=== PATIENT | male | born 1945 | race Caucasian/White ===

== ENCOUNTER 2017-12-18 09:36 | Outpatient (CLI) | payer MEDICARE, OTHER ==
[2017-12-18 10:19] LABS: INR-International Normal Ratio 2.6; Prothrombin Time 29.2 SEC (12.0-14.7)
== END 2017-12-18 09:37 | disposition home or self-care (01) ==
LOC: MADLAB 09:36
PROVIDERS: ATTEND Internal Medicine
DX: Z51.81 Encounter for therapeutic drug level monitoring (principal); I82.409 Acute embolism and thrombosis of unspecified deep veins of unspecified lower extremity; Z79.01 Long term (current) use of anticoagulants
CPT/HCPCS: 36415; 85610

== ENCOUNTER 2018-01-22 11:30 | Outpatient (CLI) | payer MEDICARE, OTHER ==
[2018-01-22 11:56] LABS: Prothrombin Time 46.7 SEC (12.0-14.7)
[2018-01-22 12:45] LABS: INR-International Normal Ratio 4.7
== END 2018-01-22 11:31 | disposition home or self-care (01) ==
LOC: MADLAB 11:30
PROVIDERS: ATTEND Internal Medicine
DX: Z51.81 Encounter for therapeutic drug level monitoring (principal); I82.409 Acute embolism and thrombosis of unspecified deep veins of unspecified lower extremity
CPT/HCPCS: 36415; 85610

== ENCOUNTER 2018-02-02 12:54 | Outpatient (CLI) | payer MEDICARE, OTHER ==
[2018-02-02 13:37] LABS: INR-International Normal Ratio 3.5; Prothrombin Time 36.8 SEC (12.0-14.7)
== END 2018-02-02 12:55 | disposition home or self-care (01) ==
LOC: MADLAB 12:54
PROVIDERS: ATTEND Internal Medicine
DX: I82.409 Acute embolism and thrombosis of unspecified deep veins of unspecified lower extremity (principal); Z79.01 Long term (current) use of anticoagulants
CPT/HCPCS: 36415; 85610

== ENCOUNTER 2018-02-16 12:45 | Outpatient (CLI) | payer MEDICARE, OTHER ==
[2018-02-16 14:01] LABS: INR-International Normal Ratio 3.2; Prothrombin Time 34.2 SEC (12.0-14.7)
== END 2018-02-16 12:46 | disposition home or self-care (01) ==
LOC: MADLAB 12:45
PROVIDERS: ATTEND Internal Medicine
DX: Z51.81 Encounter for therapeutic drug level monitoring (principal); I82.409 Acute embolism and thrombosis of unspecified deep veins of unspecified lower extremity; Z79.01 Long term (current) use of anticoagulants
CPT/HCPCS: 36415; 85610

== ENCOUNTER 2018-03-24 13:18 | Outpatient (CLI) | payer MEDICARE, OTHER ==
[2018-03-24 13:41] LABS: INR-International Normal Ratio 2.2; Prothrombin Time 25.5 SEC (12.0-14.7)
== END 2018-03-24 13:19 | disposition home or self-care (01) ==
LOC: MADLAB 13:18
PROVIDERS: ATTEND Internal Medicine
DX: Z51.81 Encounter for therapeutic drug level monitoring (principal); I82.409 Acute embolism and thrombosis of unspecified deep veins of unspecified lower extremity; Z79.01 Long term (current) use of anticoagulants
CPT/HCPCS: 36415; 85610

== ENCOUNTER 2018-04-09 13:55 | Outpatient (CLI) | payer MEDICARE, OTHER ==
[2018-04-09 14:27] LABS: INR-International Normal Ratio 2.4; Prothrombin Time 26.6 SEC (12.0-14.7)
== END 2018-04-09 13:56 | disposition home or self-care (01) ==
LOC: MADLAB 13:55
PROVIDERS: ATTEND Internal Medicine
DX: Z51.81 Encounter for therapeutic drug level monitoring (principal); Z86.718 Personal history of other venous thrombosis and embolism; Z79.01 Long term (current) use of anticoagulants
CPT/HCPCS: 36415; 85610

== ENCOUNTER 2018-04-23 15:14 | Outpatient (CLI) | payer MEDICARE, OTHER ==
[2018-04-23 15:40] LABS: INR-International Normal Ratio 2.9; Prothrombin Time 31.8 SEC (12.0-14.7)
== END 2018-04-23 15:15 | disposition home or self-care (01) ==
LOC: MADLAB 15:14
PROVIDERS: ATTEND Internal Medicine
DX: Z51.81 Encounter for therapeutic drug level monitoring (principal); I82.409 Acute embolism and thrombosis of unspecified deep veins of unspecified lower extremity; Z79.01 Long term (current) use of anticoagulants
CPT/HCPCS: 36415; 85610

== ENCOUNTER 2018-10-04 14:27 | Outpatient (CLI) | payer MEDICARE, OTHER ==
[2018-10-04 15:17] LABS: INR-International Normal Ratio 2.8; Prothrombin Time 29.7 SEC (12.0-14.7)
== END 2018-10-04 14:28 | disposition home or self-care (01) ==
LOC: MADLAB 14:27
PROVIDERS: ATTEND Family Medicine
DX: Z51.81 Encounter for therapeutic drug level monitoring (principal); I82.502 Chronic embolism and thrombosis of unspecified deep veins of left lower extremity; D68.59 Other primary thrombophilia; Z79.01 Long term (current) use of anticoagulants
CPT/HCPCS: 36415; 85610

== ENCOUNTER 2018-10-18 15:33 | Emergency (ER) | payer MEDICARE, OTHER | END 2018-10-18 16:38 | disposition home or self-care (01) | LOC: MADERS 15:33 | DX: M10.9 Gout, unspecified (principal); I10 Essential (primary) hypertension; E78.00 Pure hypercholesterolemia, unspecified; E11.9 Type 2 diabetes mellitus without complications | CPT/HCPCS: 99283 ==

== ENCOUNTER 2018-11-10 13:57 | Outpatient (CLI) | payer MEDICARE, OTHER ==
[2018-11-10 14:21] LABS: INR-International Normal Ratio 2.3; Prothrombin Time 25.3 SEC (12.0-14.7)
== END 2018-11-10 13:58 | disposition home or self-care (01) ==
LOC: MADLAB 13:57
PROVIDERS: ATTEND Internal Medicine
DX: Z51.81 Encounter for therapeutic drug level monitoring (principal); D68.59 Other primary thrombophilia; I82.502 Chronic embolism and thrombosis of unspecified deep veins of left lower extremity; Z79.01 Long term (current) use of anticoagulants
CPT/HCPCS: 36415; 85610

== ENCOUNTER 2018-11-16 11:18 | Outpatient (CLI) | payer MEDICARE, OTHER ==
[2018-11-16 11:53] LABS: INR-International Normal Ratio 2.6
== END 2018-11-16 11:19 | disposition home or self-care (01) ==
LOC: MADLAB 11:18
PROVIDERS: ATTEND Family Medicine
DX: Z51.81 Encounter for therapeutic drug level monitoring (principal); I82.502 Chronic embolism and thrombosis of unspecified deep veins of left lower extremity; I82.609 Acute embolism and thrombosis of unspecified veins of unspecified upper extremity; D68.59 Other primary thrombophilia; Z79.01 Long term (current) use of anticoagulants
CPT/HCPCS: 36415; 85610

== ENCOUNTER 2018-12-30 11:47 | Outpatient (CLI) | payer MEDICARE, OTHER ==
[2018-12-30 12:29] LABS: INR-International Normal Ratio 2.2; Prothrombin Time 24.8 SEC (12.0-14.7)
== END 2018-12-30 11:48 | disposition home or self-care (01) ==
LOC: MADLAB 11:47 → EDSTATUS 12:19
PROVIDERS: ATTEND Internal Medicine
DX: Z51.81 Encounter for therapeutic drug level monitoring (principal); Z79.01 Long term (current) use of anticoagulants; I82.502 Chronic embolism and thrombosis of unspecified deep veins of left lower extremity; D68.59 Other primary thrombophilia
CPT/HCPCS: 36415; 85610

== ENCOUNTER 2019-01-18 13:54 | Outpatient (CLI) | payer MEDICARE, OTHER ==
[2019-01-18 14:21] LABS: INR-International Normal Ratio 1.9
== END 2019-01-18 13:55 | disposition home or self-care (01) ==
LOC: MADLAB 13:54
PROVIDERS: ATTEND Family Medicine
DX: Z51.81 Encounter for therapeutic drug level monitoring (principal); I82.502 Chronic embolism and thrombosis of unspecified deep veins of left lower extremity; D68.59 Other primary thrombophilia; Z79.01 Long term (current) use of anticoagulants
CPT/HCPCS: 36415; 85610

== ENCOUNTER 2019-02-08 12:56 | Outpatient (CLI) | payer MEDICARE, OTHER ==
[2019-02-08 13:39] LABS: INR-International Normal Ratio 2.5; Prothrombin Time 26.8 SEC (12.0-14.7)
== END 2019-02-08 12:57 | disposition home or self-care (01) ==
LOC: MADLAB 12:56
PROVIDERS: ATTEND Family Medicine
DX: Z51.81 Encounter for therapeutic drug level monitoring (principal); I82.502 Chronic embolism and thrombosis of unspecified deep veins of left lower extremity; D68.59 Other primary thrombophilia; Z79.01 Long term (current) use of anticoagulants
CPT/HCPCS: 36415; 85610

== ENCOUNTER 2019-02-25 13:32 | Outpatient (CLI) | payer MEDICARE, OTHER ==
[2019-02-25 14:16] LABS: INR-International Normal Ratio 3.1; Prothrombin Time 32.2 SEC (12.0-14.7)
== END 2019-02-25 13:33 | disposition home or self-care (01) ==
LOC: MADLAB 13:32
PROVIDERS: ATTEND Family Medicine
DX: Z51.81 Encounter for therapeutic drug level monitoring (principal); I82.502 Chronic embolism and thrombosis of unspecified deep veins of left lower extremity; D68.59 Other primary thrombophilia; Z79.01 Long term (current) use of anticoagulants
CPT/HCPCS: 36415; 85610

== ENCOUNTER 2019-04-27 12:30 | Outpatient (CLI) | payer MEDICARE, OTHER ==
[2019-04-27 13:14] LABS: Prothrombin Time 39.4 SEC (12.0-14.7)
[2019-04-27 13:22] LABS: INR-International Normal Ratio 4.1
== END 2019-04-27 12:31 | disposition home or self-care (01) ==
LOC: MADLAB 12:30
PROVIDERS: ATTEND Internal Medicine
DX: Z51.81 Encounter for therapeutic drug level monitoring (principal); I82.502 Chronic embolism and thrombosis of unspecified deep veins of left lower extremity; D68.59 Other primary thrombophilia; Z79.01 Long term (current) use of anticoagulants
CPT/HCPCS: 36415; 85610

== ENCOUNTER 2019-05-06 14:42 | Outpatient (CLI) | payer MEDICARE, OTHER ==
[2019-05-06 15:03] LABS: Prothrombin Time 41.8 SEC (12.0-14.7)
[2019-05-06 15:10] LABS: INR-International Normal Ratio 4.4
== END 2019-05-06 14:43 | disposition home or self-care (01) ==
LOC: MADLAB 14:42
PROVIDERS: ATTEND Family Medicine
DX: Z51.81 Encounter for therapeutic drug level monitoring (principal); I82.502 Chronic embolism and thrombosis of unspecified deep veins of left lower extremity; D68.59 Other primary thrombophilia; I82.609 Acute embolism and thrombosis of unspecified veins of unspecified upper extremity; Z79.01 Long term (current) use of anticoagulants
CPT/HCPCS: 36415; 85610

== ENCOUNTER 2019-05-09 14:38 | Outpatient (CLI) | payer MEDICARE, OTHER ==
[2019-05-09 15:16] LABS: INR-International Normal Ratio 3.1; Prothrombin Time 31.4 SEC (12.0-14.7)
== END 2019-05-09 14:39 | disposition home or self-care (01) ==
LOC: MADLAB 14:38
PROVIDERS: ATTEND Internal Medicine
DX: Z51.81 Encounter for therapeutic drug level monitoring (principal); I82.609 Acute embolism and thrombosis of unspecified veins of unspecified upper extremity; D68.59 Other primary thrombophilia; Z79.01 Long term (current) use of anticoagulants
CPT/HCPCS: 36415; 85610

== ENCOUNTER 2019-05-20 14:43 | Outpatient (CLI) | payer MEDICARE, OTHER ==
[2019-05-20 15:27] LABS: INR-International Normal Ratio 2.6; Prothrombin Time 27.8 SEC (12.0-14.7)
== END 2019-05-20 14:44 | disposition home or self-care (01) ==
LOC: MADLAB 14:43
PROVIDERS: ATTEND Family Medicine
DX: Z51.81 Encounter for therapeutic drug level monitoring (principal); I82.509 Chronic embolism and thrombosis of unspecified deep veins of unspecified lower extremity; Z79.01 Long term (current) use of anticoagulants; D68.59 Other primary thrombophilia
CPT/HCPCS: 36415; 85610

== ENCOUNTER 2019-06-03 15:32 | Outpatient (CLI) | payer MEDICARE, OTHER ==
[2019-06-03 15:48] LABS: INR-International Normal Ratio 2.6; Prothrombin Time 27.6 SEC (12.0-14.7)
== END 2019-06-03 15:33 | disposition home or self-care (01) ==
LOC: MADLAB 15:32
PROVIDERS: ATTEND Internal Medicine
DX: Z51.81 Encounter for therapeutic drug level monitoring (principal); I82.502 Chronic embolism and thrombosis of unspecified deep veins of left lower extremity; D68.59 Other primary thrombophilia; Z79.01 Long term (current) use of anticoagulants
CPT/HCPCS: 36415; 85610

== ENCOUNTER 2019-08-26 12:21 | Outpatient (CLI) | payer MEDICARE, OTHER ==
[2019-08-26 16:52] LABS: INR-International Normal Ratio 2.7; Prothrombin Time 28.5 SEC (12.0-14.7)
== END 2019-08-26 12:22 | disposition home or self-care (01) ==
LOC: MADLAB 12:21
PROVIDERS: ATTEND Family Medicine
DX: Z51.81 Encounter for therapeutic drug level monitoring (principal); I82.502 Chronic embolism and thrombosis of unspecified deep veins of left lower extremity; I82.609 Acute embolism and thrombosis of unspecified veins of unspecified upper extremity; D68.59 Other primary thrombophilia; Z79.01 Long term (current) use of anticoagulants
CPT/HCPCS: 36415; 85610

== ENCOUNTER 2019-10-03 14:54 | Outpatient (CLI) | payer MEDICARE, OTHER ==
[2019-10-03 15:09] LABS: INR-International Normal Ratio 1.6; Prothrombin Time 19.3 SEC (12.0-14.7)
== END 2019-10-03 14:55 | disposition home or self-care (01) ==
LOC: MADLAB 14:54
PROVIDERS: ATTEND Family Medicine
DX: Z51.81 Encounter for therapeutic drug level monitoring (principal); I82.502 Chronic embolism and thrombosis of unspecified deep veins of left lower extremity; Z79.899 Other long term (current) drug therapy; Z79.01 Long term (current) use of anticoagulants
CPT/HCPCS: 36415; 85610

== ENCOUNTER 2019-10-18 13:52 | Outpatient (CLI) | payer MEDICARE, OTHER ==
[2019-10-18 14:36] LABS: Prothrombin Time 39.4 SEC (12.0-14.7)
[2019-10-18 14:49] LABS: INR-International Normal Ratio 4.1
== END 2019-10-18 13:53 | disposition home or self-care (01) ==
LOC: MADLAB 13:52
PROVIDERS: ATTEND Internal Medicine Hematology & Oncology
DX: D68.59 Other primary thrombophilia (principal); Z86.718 Personal history of other venous thrombosis and embolism
CPT/HCPCS: 36415; 85610

== ENCOUNTER 2019-10-31 13:18 | Outpatient (CLI) | payer MEDICARE, OTHER ==
[2019-10-31 13:45] LABS: INR-International Normal Ratio 2.3; Prothrombin Time 25.5 SEC (12.0-14.7)
== END 2019-10-31 13:19 | disposition home or self-care (01) ==
LOC: MADLAB 13:18
PROVIDERS: ATTEND Internal Medicine
DX: D68.59 Other primary thrombophilia (principal); Z86.718 Personal history of other venous thrombosis and embolism
CPT/HCPCS: 36415; 85610

== ENCOUNTER 2019-11-14 12:00 | Outpatient (CLI) | payer MEDICARE, OTHER ==
[2019-11-14 12:43] LABS: INR-International Normal Ratio 1.7; Prothrombin Time 20.3 SEC (12.0-14.7)
== END 2019-11-14 12:01 | disposition home or self-care (01) ==
LOC: MADLAB 12:00
PROVIDERS: ATTEND Internal Medicine Hematology & Oncology
DX: Z51.81 Encounter for therapeutic drug level monitoring (principal); D68.59 Other primary thrombophilia; Z86.718 Personal history of other venous thrombosis and embolism; Z79.01 Long term (current) use of anticoagulants
CPT/HCPCS: 36415; 85610

== ENCOUNTER 2019-11-28 14:17 | Outpatient (CLI) | payer MEDICARE, OTHER ==
[2019-11-28 15:22] LABS: Prothrombin Time 39.7 SEC (12.0-14.7)
[2019-11-28 15:38] LABS: INR-International Normal Ratio 4.1
== END 2019-11-28 14:18 | disposition home or self-care (01) ==
LOC: MADLAB 14:17
PROVIDERS: ATTEND Internal Medicine Hematology & Oncology
DX: D68.59 Other primary thrombophilia (principal); Z86.718 Personal history of other venous thrombosis and embolism
CPT/HCPCS: 36415; 85610

== ENCOUNTER 2019-12-13 14:32 | Outpatient (CLI) | payer MEDICARE, OTHER ==
[2019-12-13 14:53] LABS: INR-International Normal Ratio 3.7; Prothrombin Time 36.2 SEC (12.0-14.7)
== END 2019-12-13 14:33 | disposition home or self-care (01) ==
LOC: MADLAB 14:32
PROVIDERS: ATTEND Internal Medicine Hematology & Oncology
DX: D68.59 Other primary thrombophilia (principal); Z86.718 Personal history of other venous thrombosis and embolism
CPT/HCPCS: 36415; 85610

== ENCOUNTER 2019-12-28 13:17 | Outpatient (CLI) | payer MEDICARE, OTHER ==
[2019-12-28 14:03] LABS: Prothrombin Time 30.8 SEC (12.0-14.7)
== END 2019-12-28 13:18 | disposition home or self-care (01) ==
LOC: MADLAB 13:17
PROVIDERS: ATTEND Internal Medicine Hematology & Oncology
DX: D68.59 Other primary thrombophilia (principal); Z86.718 Personal history of other venous thrombosis and embolism
CPT/HCPCS: 36415; 85610

== ENCOUNTER 2020-01-10 09:51 | Outpatient (CLI) | payer MEDICARE, OTHER ==
[2020-01-10 10:30] LABS: INR-International Normal Ratio 2.3; Prothrombin Time 25.3 SEC (12.0-14.7)
== END 2020-01-10 09:52 | disposition home or self-care (01) ==
LOC: MADLAB 09:51
PROVIDERS: ATTEND Internal Medicine Hematology & Oncology
DX: Z51.81 Encounter for therapeutic drug level monitoring (principal); D68.59 Other primary thrombophilia; Z86.718 Personal history of other venous thrombosis and embolism; Z79.01 Long term (current) use of anticoagulants
CPT/HCPCS: 36415; 85610

== ENCOUNTER 2020-01-24 10:02 | Outpatient (CLI) | payer MEDICARE, OTHER ==
[2020-01-24 10:31] LABS: INR-International Normal Ratio 2.2; Prothrombin Time 24.3 SEC (12.0-14.7)
== END 2020-01-24 10:03 | disposition home or self-care (01) ==
LOC: MADLAB 10:02
PROVIDERS: ATTEND Internal Medicine Hematology & Oncology
DX: Z51.81 Encounter for therapeutic drug level monitoring (principal); D68.59 Other primary thrombophilia; Z86.718 Personal history of other venous thrombosis and embolism; Z79.01 Long term (current) use of anticoagulants
CPT/HCPCS: 36415; 85610

== ENCOUNTER 2020-02-07 09:47 | Outpatient (CLI) | payer MEDICARE, OTHER ==
[2020-02-07 10:53] LABS: INR-International Normal Ratio 2.6; Prothrombin Time 27.7 SEC (12.0-14.7)
== END 2020-02-07 09:48 | disposition home or self-care (01) ==
LOC: MADLAB 09:47
PROVIDERS: ATTEND Internal Medicine Hematology & Oncology
DX: D68.59 Other primary thrombophilia (principal); Z86.718 Personal history of other venous thrombosis and embolism
CPT/HCPCS: 36415; 85610

== ENCOUNTER 2020-03-07 09:44 | Outpatient (CLI) | payer MEDICARE, OTHER ==
[2020-03-07 10:13] LABS: INR-International Normal Ratio 2.9; Prothrombin Time 29.9 SEC (12.0-14.7)
== END 2020-03-07 09:45 | disposition home or self-care (01) ==
LOC: MADLAB 09:44
PROVIDERS: ATTEND Internal Medicine Hematology & Oncology
DX: Z51.81 Encounter for therapeutic drug level monitoring (principal); D68.59 Other primary thrombophilia; Z86.718 Personal history of other venous thrombosis and embolism; Z79.01 Long term (current) use of anticoagulants
CPT/HCPCS: 36415; 85610